=== PATIENT | male | born 1930 | race African-American/Black ===

== ENCOUNTER 2017-07-16 20:18 | Inpatient (IN) | payer MEDICARE, MEDICAID ==
[2017-07-16 21:13] LABS: Bilirubin Large (Negative); Blood, Urine Large (Negative); Clarity TURBID (Clear); Glucose, Urine (Dipstick) 100 mg/dL (Negative); Leukocyte Moderate (Negative); Nitrite Positive (Negative); Protein, Urine (Dipstick) 300 mg/dL (Neg-Trace); Specific Gravity, Urine 1.023 (1.002-1.036)
[2017-07-16 21:15] LABS: WBC/HPF 21-50 HPF (0-3)
[2017-07-16 21:16] LABS: Pathc Cast-AUWi Flag 31.11 (0-2.49); Yeast-AUWi Flag 71.8 (0-25.0)
[2017-07-16 21:23] LABS: RBC/HPF 21-50 HPF (0-3)
[2017-07-16 21:24] LABS: Renal Epithelial 0-3 HPF (0-3); Squamous Epithelial 0-3 HPF (0-3)
[2017-07-16 21:25] LABS: Bacteria/HPF 1+ HPF (None Seen); Crystals/HPF 1+ CA OXALATE HPF (Negative)
--- NOTE | 2017-07-16 21:27 | CT ---
CT BRAIN WITHOUT CONTRAST: 07/16/17 HISTORY: Altered mental status. COMPARISON: CT brain 2013. FINDINGS: No acute territorial infarct or hemorrhage. No midline shift or mass effect. Mild joint atrophy. Exam is limited due to extensive motion artifact. Extensive subcortical and deep white matter microangiopathic changes. IMPRESSION: No acute intracranial abnormality. POS: ENMANUEL
[2017-07-16] MEDS ORDERED: cefTRIAXone\\ROCEPHIN 2 GM VIAL ONE (22:12)
[2017-07-16] MEDS ORDERED: Acetaminophen 325 MG TAB PO PRN (23:28)
[2017-07-16] MEDS ORDERED: Ondansetron HCl/PF 4 MG/2 ML Vial IVP PRN (23:28)
[2017-07-16] MEDS ORDERED: Ondansetron ODT 4 MG TAB PO PRN (23:28)
[2017-07-16] MEDS ORDERED: Acetaminophen 650 MG Suppository PR PRN (23:28)
[2017-07-16] MEDS ORDERED: CCU Electrolyte Replacement 1 EACH FS ONE (23:30)
[2017-07-16] MEDS ORDERED: Sodium Chloride 0.9% 1,000 ML IV SCH (23:30)
[2017-07-16] MEDS ORDERED: Norepinephrine 8 MG/0.9% NS 250 ML IVPB SCH (23:30)
[2017-07-17] MEDS ORDERED: Potassium Phosphate 9 MMOL in Sodium Chloride 0.9% 100 ML IVPB PRN (00:21)
[2017-07-17] MEDS ORDERED: CCU ELECTROLYTE REPLACEMENT PROTOCOL FS PRN (00:21)
[2017-07-17] MEDS ORDERED: Potassium Chloride 20 MEQ TAB PO PRN (00:21)
[2017-07-17] MEDS ORDERED: Potassium Phosphate 12 MMOL in Sodium Chloride 0.9% 250 ML 250 ML IV PRN (00:21)
[2017-07-17] MEDS ORDERED: Potassium Chloride 40 MEQ in Premix Bag 1 BAG IVPB PRN (00:21)
[2017-07-17] MEDS ORDERED: Magnesium Oxide 400 MG TAB PO PRN ×2 (00:21)
[2017-07-17] MEDS ORDERED: Potassium Phosphate 15 MMOL in Sodium Chloride 0.9% 250 ML 250 ML IV PRN (00:21)
[2017-07-17] MEDS ORDERED: Magnesium 2 GM/NS 0.9% 100 ML 2 GM in Premix Bag 1 BAG IVPB PRN (00:21)
[2017-07-17] MEDS ORDERED: Potassium Chloride 40 MEQ in Sodium Chloride 0.9% 250 ML 250 ML IVPB PRN (00:21)
--- NOTE | 2017-07-17 00:25 | PDOC.FPRHP ---
- History of Present Illness Chief Complaint: hypotension, ams, vomiting, diarrhea History of Present Illness: PCP: [facility] Code Status: OOH DNR; however, unable to contact POA to confirm they wish to continue DNR status while inpatient. Pt will be admitted full code and will try again to contact family in the AM 87 yo M w/ PMH of dementia, cerebrovascular insufficiency, htn, chronic kidney disease and GERD presented to outside ED after NH found pt to be hypotensive. History was obtained through chart review of past notes, er records and speaking with group home. NH reports pt had been vomiting approx 4-5 times today and had some noted diarrhea as well. He was found to be hypotensive and not at his baseline mental status at which point he was sent to [place] er for further evaluation. In the ER pt was found to be hypotensive down to 50s/40s with tachycardia and tachypnia. He was afebrile. He was volume resuscitated, started on levophed for hypotension, given vancomycin and subsequently shipped to [facility] for further evaluation. On arrival to the ED at this hospital pt was found to be persistently hypotensive and had a GCS of 9. He had a frazier and left subclavian central line in place. No other history was able to be provided. As pt was responsive only to verbal stimuli and not verbal. ED Course: Levophed, vancomycin, 4L NS, zofran - Allergies/Adverse Reactions Allergies Allergy/AdvReac Type Severity Reaction Status Date / Time No Known Allergies Allergy Verified 07/16/17 23:31 - Home Medications Medication Instructions Recorded Confirmed Type Atorvastatin Calcium [Lipitor] 20 mg PO DAILY 08/16/13 07/16/17 History Docusate [Colace] 100 mg PO DAILY 08/16/13 07/16/17 History Bisacodyl [Dulcolax] 10 mg WV DAILYPRN PRN #0 supp 12/08/13 07/16/17 Rx Lisinopril [Zestril] 10 mg PO DAILY #0 tab 12/08/13 07/16/17 Rx Amlodipine [Norvasc] 10 mg PO DAILY 07/16/17 07/16/17 History Ascorbic Acid [Vitamin C] 500 mg PO DAILY 07/16/17 07/16/17 History Aspirin 325 mg PO DAILY 07/16/17 07/16/17 History Divalproex Sodium [Depakote 125 mg PO DAILY 07/16/17 07/16/17 History Sprinkle] Ipratropium/Albuterol Sulfate 3 ml NEB QID PRN 07/16/17 07/16/17 History [Duoneb] Pantoprazole Sodium [Protonix] 40 mg PO DAILY 07/16/17 07/16/17 History Rivastigmine Tartrate 1.5 mg PO DAILY 07/16/17 07/16/17 History [Rivastigmine] risperiDONE [RisperDAL] 1 mg PO HS 07/16/17 07/16/17 History - History PMHx: HTN, CKD, GERD, HLD PSHx: Unknown FHx: NA Social: Unknown - Review of Systems ROS unobtainable: due to mental status - Vital signs BP: 52/40 HR: 117 RR: 41 Tmax: 98.6 Pox: 100% on 2LNC Wt: 91Kg - Physical Exam Constitutional: other (Lethargic, arousable to verbal stimuli, altered mental status, responds to verbal commands, non-verbal) HEENT: normocephalic and atraumatic, PERRLA, EOMI, conjunctiva clear, no scleral icterus, TM's clear and intact, grossly normal hearing Neck: supple, trachea midline, no LAD, no JVD, no thyromegaly Heart: normal S1/S2, no murmurs/rubs/gallops, pulses present, no edema, other ( tachycardic, regular rhythm) Lungs: CTAB, no respiratory distress, good air movement, no wheezing, no retractions Abdomen: bowel sounds present (sluggish), no masses/distention, other (guarding and localizing to LLQ, tender to palpation) Musculoskeletal: normal structure, ROM grossly normal Neurological: other (no localizing deficits, pt moving all extremities) Skin: no rash/lesions, capillary refill <2 seconds, other Heme/Lymphatic: no unusual bruising or bleeding, no petechia, no LAD Psychiatric: other (attempts to follow commands, lethargic) FMR H&P: Results - Labs Result Diagrams: 07/17/17 02:00 07/17/17 02:00 Lab results: Lactic Acid 4.5 mmol/L (0.5-2.2) H* 07/16/17 22:10 Urine Ketones 15 mg/dL (Negative) H 07/16/17 21:04 Urine Blood Large (Negative) H 07/16/17 21:04 Urine Nitrite Positive (Negative) H 07/16/17 21:04 Ur Leukocyte Esterase Moderate (Negative) H 07/16/17 21:04 Urine RBC 21-50 HPF (0-3) H 07/16/17 21:04 Urine WBC 21-50 HPF (0-3) H 07/16/17 21:04 Ur Squamous Epith Cells 0-3 HPF (0-3) 07/16/17 21:04 Urine Bacteria 1+ HPF (None Seen) H 07/16/17 21:04 - EKG Interpretation EKG: Sinus tach, LAD - Radiology Interpretation CT scan - head Status: report reviewed by me Additional comment: No acute intracranial process Chest x-ray Status: report reviewed by me (NAD, Left subclavian central line placed, rt deviation of trachea 2/2 possible mediastinal mass) FMR H&P: A/P - Problem List (1) Septic shock Current Visit: Yes Status: Acute Code(s): A41.9 - SEPSIS, UNSPECIFIED ORGANISM; R65.21 - SEVERE SEPSIS WITH SEPTIC SHOCK (2) UTI (urinary tract infection) Current Visit: Yes Status: Acute (3) Hematochezia Current Visit: Yes Status: Acute Code(s): K92.1 - MELENA (4) Abdominal pain Current Visit: Yes Status: Acute Code(s): R10.9 - UNSPECIFIED ABDOMINAL PAIN (5) Elevated troponin Current Visit: Yes Status: Acute Code(s): R74.8 - ABNORMAL LEVELS OF OTHER SERUM ENZYMES (6) Pvonl-dz-uusexcp kidney injury Current Visit: Yes Status: Acute Code(s): N17.9 - ACUTE KIDNEY FAILURE, UNSPECIFIED; N18.9 - CHRONIC KIDNEY DISEASE, UNSPECIFIED (7) Hypernatremia Current Visit: Yes Status: Acute Code(s): E87.0 - HYPEROSMOLALITY AND HYPERNATREMIA (8) HTN (hypertension) Current Visit: Yes Status: Acute Code(s): I10 - ESSENTIAL (PRIMARY) HYPERTENSION (9) GERD (gastroesophageal reflux disease) Current Visit: Yes Status: Acute Code(s): K21.9 - GASTRO-ESOPHAGEAL REFLUX DISEASE WITHOUT ESOPHAGITIS - Plan 1) Septic shock: likely 2/2 urosepsis vs hypovolemic shock -pt found to be as low as 52/40 in outside ED, given 4LNS and started on levophed -admit to ICU -levophed gtt titrate for MAP >65 -will cover broadly with vanc zosyn for now. Outside ED shannan blood cultures, pending results. - UA + nitrites and leuks with 1+ bacteria, culture pending. Likely E. Coli vs other Enterobacteriaceae family -pt does localize to LLQ abdominal pain and is having episodes of hematochezia and vomiting, will order KUB to r/o free air in abd and abnormal bowel gas pattern -consider am ct abd with contrast pending improvement of renal function and volume status -trend cbc, recheck am cbc/cmp and trend cardiac enzymes 2)UTI: See #1, broad spectrum abx. Blood and urine cultures pending 3) Hematochezia: -with associated abd pain and diarrhea/nausea -infectious vs hypoperfusion -Kub to check for free air/ abnormal bowel gas pattern -consider am ct with contrast once renal function improves 4) Abd pain: see #3 5)Elevated troponin: -likely 2/2 demand ischemia from hypoperfusion/hypotension -maintain MAP >65 and titrate levophed gtt accordingly -IVF @ 175mls/hr -will trend 6) AonCKD: -repeat am cmp, IVF @ 175 -has shown improvement from original labs with IVF resuscitation -trend 7) Lactic acidosis w/ anion gap met acidosis: -2/2 #1, see#1-4 -has trended down -recheck q4hr -NS @ 175mls/hr 8) Hypernatremia: 2/2 volume depletion -IVF hydration with NS @ 175 mls/hr -trend 9) HTN: Curerently hypotensive: hold bp mends 10) GERD: IV protonix while in ICU, home meds once pt stabilizes 11) PPX: Lovenox and protonix for dvt and GI ppx respectively 12) Code status: Pt will be admitted as a full code. He has an OOH dnr which is not applicable to the hospitalization and numerous attempts were made to contact POA. Unfortunately, unable to reach . He will remain full code for the time being and we will re-attempt contacting family in the AM to confirm or change current code status. He has baseline dementia and unable to make medical decisions for self 2/2 current condition. 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 Per ED record and NH staff, pt vomited multiple times today along with a couple episodes of diarrhea. He appeared altered and hard to arouse. BPs repeatedly low at 60s-70s systolic so sent to ED due to this. No fevers reported. In outside ED, pt found with elevated lactate and only mild improvement in BP. Central line placed and levophed started. No urine output. Garrison unstable for imaging so transferred to [facility]. Brain CT neg for acute process. Still requiring pressors but starting to wake up in ED. Admitted to CCU. - Pertinent findings Gen: opens eyes to voice, currently nonverbal, NAD HEENT: PERRL, EOMI, dry MM CV: sinus tachycardia, regular rhythm, no m/r/g Lungs: CTAB, no rales/rhonchi, no increased WOB Abd: soft, difficult to assess tenderness due to mentation although no guarding , potential TTP in LLQ, ND, BS+ Ext: no edema Neuro: not following commands; no obvious focal deficits Psych: sleepy but arousable Skin: cap refill <2 sec - Plan Date/Time: 07/17/17 0025 1. Septic shock likely 2/2 UTI and gastroenteritis. Tachycardic, increased RR, and 23% bands on repeat CBC. Pt severely hypotensive with 30ml/kg bolus giving only mild improvement. Central line placed and started on pressors. More fluids with more improvement although not weanable yet. Lactate 5.6. Broad spectrum abx and continue IV fluids. UA reflects likely UTI. Brain CT neg. Pending BCx/ UCx. Hypovolemia worsened by vomiting and diarrhea. Admit to CCU for pressor support with guarded prognosis. 2. UTI. See above. UCx pending. Treat broad spectrum abx currently. May have secondary gastroenteritis as well or just 3. Hematochezia. Infectious vs hypoperfusion. Pt had a few episodes of diarrhea prior to admission with no mention in records of blood. Started having loose stools with blood present confirmed on FOBT soon after got to floor. BPs low for some time today due to sepsis and requiring pressors. Continue following lactate. Will plan for CT abd in AM pending expected renal improvement. KUB now to rule out free air and evaluate for signs of ischemia. Stool studies pending for infectious etiology. Consider GI consult if bleeding continues. H&H stable; repeat in AM. 4. Gastroenteritis, presumed infectious. May be viral that led to dehydration with hypoperfusion leading to hematochezia, but could also be bacterial etiology. Pending stool studies. See above. 5. EDWARDO on CKD3. Continue IV fluids and repeat in AM. Already showing mild improvement. Urine output starting to improve. 6. Lactic acidosis. Continue with IV fluids and trending lactate. Bicarb 19. 7. Hypernatremia. Likely due to hypovolemia. Trend and replace fluids. 8. Hx prostate cancer. Unsure if treated or how advanced. 9. Severe dementia. 2/2 progressive amyloid angiopathy and recurrent CVAs. Lives in long-term NH. Family not available by phone after multiple attempts. Pt has [id number] DNR but unable to contact anyone concerning this admission. Pt not able to answer questions. Full code at this point. Will speak with Dr. Ott tomorrow and again attempt family contact. Prior admission in mentioned going to NH with hospice although unclear if this has changed. PT/ OT evaluation when more awake. I, Leo Hector, have evaluated this patient and agree with findings/plan as outlined by event marketing intern resident. Pertinent changes/additions are listed here. Attending Addendum - Attending Addendum Date/Time: 07/17/17 0702 I personally evaluated the patient and discussed the management with Dr. Koo on 07/16/17 I agree with the History, Examination, Assessment and Plan documented above with any addition or exceptions noted below- Briefly this is an 87 yo male with h/o dementia, GERD, CVA and CKD sent to [place] ER from [place] due to several episodes of vomiting/diarrhea and altered MS from baseline. IN ER patient noted to be hypotensive. Given 2 L IVF and transferred; additional fluid given in ER here and patent started on pressors with improvement of BP and mentation. PMH/ PSH/Meds/SH/ALL reviewed and agree with resident's documentation. Afebrile P111 BP 88/58 RR 15 99%. Exam repeated by me and agree with resident's findings. Labs- WBC=8.8 Hgb=-14.2 Hct=46.4 Dqq=942 Sm=099 CO2=19 Cr=1.85 Ca=13.0 CT brain- no acute findings. U/A 4+ prot, large blood, (+) nitrite, moderate leuk esterase, 21-50 RBC, 21-50 WBC, 1+ bact; lactate 5.2 then 4.5. CXR-no acute findings. A/P: 1) Sepsis secondary to UTI- continue antibiotics, cultures pending; continue IVF hydration and monitor urine output closely. 2) Dementia- will discuss with PCP and NH patient's baseline status, 3) Hypotension - improved; wean pressors as tolerated.
[2017-07-17 00:45] LABS: ALT (SGPT) 14 U/L (8-55); AST (SGOT) 22 U/L (5-34); Albumin 3.5 g/dL (3.4-4.8); Alkaline Phosphatase 183 U/L (40-150); Anion Gap 13 mmol/L (10-20); BUN (Urea Nitrogen) 23 mg/dL (8.4-25.7); Bilirubin, Total 0.9 mg/dL (0.2-1.2); Calc. Creatinine Clearance 43 mL/min (70-130); Calcium 10.4 mg/dL (7.8-10.44); Carbon Dioxide 19 mmol/L (23-31); Chloride 118 mmol/L (98-107); Estimated GFR-MDRD 49; Globulin 1.9 g/dL (2.4-3.5); Glucose 137 mg/dL (83-110); Potassium 3.7 mmol/L (3.5-5.1); Protein, Total 5.4 g/dL (5.8-8.1); Sodium 146 mmol/L (136-145)
[2017-07-17 00:49] LABS: CKMB 4.5 ng/mL (0-6.6); Troponin I 0.047 ng/mL (< 0.028)
[2017-07-17] MEDS: Piperacillin/Tazobactam 3.375 GM in Sodium Chloride 0.9% 100 ML IVPB SCH ×4 (02:36→22:11)
[2017-07-17] MEDS ORDERED: Vancomycin HCl 1 GM in Premix Bag 1 BAG IVPB SCH (03:00)
[2017-07-17 03:14] LABS: Lactic Acid 3.1 mmol/L (0.5-2.2)
[2017-07-17 03:30] LABS: Band 23 % (5-11); Hemoglobin 13.2 g/dL (14.0-18.0); Lymphocytes 7 % (21-51); MDiff Complete? YES; Macrocytosis SLIGHT = 6-15 cells (100X) (0-5/hpf); Mean Corpuscular HGB CONC 32.9 g/dL (32.0-36.0); Mean Corpuscular Hemoglobin 33.5 pg (27.0-31.0); Mean Platelet Volume 9.4 fL (7.4-10.4); Metamyelocyte 2 % (0-0); Monocytes 2 % (0-10); Neutrophil 61 % (42-75); PLT Morphology Comment Appears Decreased; Platelet Count 109 thou/uL (130-400); RBC Distribution Width 13.7 % (11.5-14.5); Reactive Lymphocytes 5 % (0-10); Red Blood Cell (RBC) Count 3.95 mill/uL (4.70-6.10); White Blood Cell (WBC) Count 6.3 thou/uL (4.8-10.8)
[2017-07-17 03:33] LABS: ALT (SGPT) 13 U/L (8-55); AST (SGOT) 25 U/L (5-34); Albumin 3.4 g/dL (3.4-4.8); Alkaline Phosphatase 172 U/L (40-150); Anion Gap 12 mmol/L (10-20); BUN (Urea Nitrogen) 23 mg/dL (8.4-25.7); Bilirubin, Total 0.9 mg/dL (0.2-1.2); Calc. Creatinine Clearance 44 mL/min (70-130); Calcium 10.4 mg/dL (7.8-10.44); Carbon Dioxide 19 mmol/L (23-31); Chloride 119 mmol/L (98-107); Estimated GFR-MDRD 50; Glucose 136 mg/dL (83-110); Protein, Total 5.4 g/dL (5.8-8.1); Sodium 146 mmol/L (136-145)
[2017-07-17 04:55] LABS: CKMB 5.3 ng/mL (0-6.6); Troponin I 0.042 ng/mL (< 0.028)
[2017-07-17] MEDS: Lactated Ringer's 1,000 ML IV SCH ×4 (06:32→23:25)
--- NOTE | 2017-07-17 08:48 | PDOC.FM ---
- Subjective Subjective: CC: non-verbal HPI: Patient remains nonverbal but opens eyes to commands. Attempting to contact family at this time but still unable to reach. Will attempt to obtain copy of OOH DNR from [place]. Nursing states he was slowly weaned of pressors overnight. - Objective MAR Reviewed: Yes Vital Signs & Weight: Vital Signs (12 hours) Temp Pulse Resp Pulse Ox 07/17/17 08:00 98.9 F 86 25 H 100 07/17/17 07:00 98.9 F 07/17/17 06:00 98 F 07/17/17 04:00 100 07/17/17 03:00 97.6 F 07/17/17 00:00 98.1 F 99 07/16/17 23:31 98.1 F 90 20 99 Most Recent Monitor Data Heart Rate from ECG 87 NIBP 88/51 NIBP BP-Mean 68 Respiration from ECG 23 SpO2 100 I&O: 07/16/17 07/17/17 07/18/17 06:59 06:59 06:59 Intake Total 5307 6 Output Total 380 105 Balance 4927 -99 Result Diagrams: 07/17/17 02:00 07/17/17 02:00 <Jas Uribe - Last Filed: 07/17/17 08:47> - Objective Vital Signs & Weight: Vital Signs (12 hours) Temp Pulse Resp Pulse Ox 07/17/17 11:00 98.5 F 07/17/17 08:00 98.9 F 86 25 H 100 07/17/17 07:00 98.9 F 07/17/17 06:00 98 F 07/17/17 04:00 100 Most Recent Monitor Data Heart Rate from ECG 100 NIBP 97/57 NIBP BP-Mean 68 Respiration from ECG 23 SpO2 100 I&O: 07/16/17 07/17/17 07/18/17 06:59 06:59 06:59 Intake Total 5307 996 Output Total 380 420 Balance 4927 576 Result Diagrams: 07/17/17 02:00 07/17/17 02:00 <Omid Mathur - Last Filed: 07/17/17 16:01> Phys Exam - Physical Examination Constitutional: NAD HEENT: moist MMs, sclera anicteric Neck: no nodes, no JVD Respiratory: no wheezing, clear to auscultation bilateral Cardiovascular: RRR, no significant murmur Gastrointestinal: soft, no distention, positive bowel sounds patient grimices with abdominal palpation diffusely. Musculoskeletal: no edema cannont assess Skin: no rash, cap refill <2 seconds <Jas Uribe - Last Filed: 07/17/17 08:47> Dx/Plan (1) Septic shock Code(s): A41.9 - SEPSIS, UNSPECIFIED ORGANISM; R65.21 - SEVERE SEPSIS WITH SEPTIC SHOCK Status: Acute Plan: Slowly weaning off pressors. continue abx and fluids. (2) UTI (urinary tract infection) Status: Acute QualifierTitle: Urinary tract infection type: site unspecified Hematuria presence: with hematuria Qualified Code(s): N39.0 - Urinary tract infection, site not specified; R31.9 - Hematuria, unspecified; R31.9 - Hematuria, unspecified Plan: Culture pending. Vanc/Zosyn day 2 (3) Abdominal pain Code(s): R10.9 - UNSPECIFIED ABDOMINAL PAIN Status: Acute QualifierTitle: Abdominal location: generalized Qualified Code(s): R10.84 - Generalized abdominal pain Plan: cannot localize due to AMS/dementia - since renal function improving, will consider CT abdomen and pelvis with contrast. Would like to see kidneys improve more before subjecting to contrast - stool studies pending. FOBT positive. (4) [id number] kidney injury Code(s): N17.9 - ACUTE KIDNEY FAILURE, UNSPECIFIED; N18.9 - CHRONIC KIDNEY DISEASE, UNSPECIFIED Status: Acute QualifierTitle: Acute renal failure type: unspecified Chronic kidney disease stage: unspecified stage Qualified Code(s): N17.9 - Acute kidney failure, unspecified; N18.9 - Chronic kidney disease, unspecified; N18.9 - Chronic kidney disease, unspecified Plan: improving. baseline Cr 0.9. - continue fluids, attempt to wean pressors. (5) Dementia Code(s): F03.90 - UNSPECIFIED DEMENTIA WITHOUT BEHAVIORAL DISTURBANCE Status: Acute QualifierTitle: Dementia type: unspecified type Dementia behavioral disturbance: without behavioral disturbance Qualified Code(s): F03.90 - Unspecified dementia without behavioral disturbance Plan: Will attempt to contact family and PCP regarding correction care goals. Patient has record of OOH DNR. will obtain copy and adjust code status accordingly. <Jas Uribe - Last Filed: 07/17/17 08:47> Attending Addendum - Attending Addendum Date/Time: 07/17/17 9568 I personally evaluated the patient and discussed the management with Dr. Uribe. I agree with the History, Examination, Assessment and Plan documented above with any addition or exceptions noted below. Pt. arousable, confused. Maintaining MAP >65 off pressors. Lungs CTA. Septic Shock d/t UTI in pt with baseline vascular dementia, improved with IVF and abx' s. Confirm code status with family. Likely can be moved out of CCU if continues to return to baseline. 35 minutes spent in review of history, examination, labs and CCU progress and formulating treatment plan.. <Omid Mathur - Last Filed: 07/17/17 16:01>
[2017-07-17] MEDS ORDERED: Pantoprazole 40 MG VIAL IVP SCH (09:00)
[2017-07-17] MEDS ORDERED: Prevnar 13-Val Conj/PF 0.5 ML SYRINGE IM ONE (09:00)
[2017-07-17] MEDS ORDERED: Famotidine/PF 20 mg/2ml Vial SLOW IVP SCH (09:00)
--- NOTE | 2017-07-17 09:34 | RAD ---
KUB TWO VIEWS: Indication: Abdominal pain, hypotension, altered mental status. FINDINGS: The bowel gas pattern is nonspecific but without evidence of obstruction. There is a temperature prob e within the region of the bladder. There are numerous surgical clips within the prostate which may r eflect sequellae of a prostatectomy. There is severe degenerative change involving the right hip and lower lumbar spine. There is diffuse osteopenia. No suspicious calcification is evident. There is a p hlebolith within the right hemipelvis. IMPRESSION: No acute abnormality. POS: ENMANUEL
[2017-07-17] MEDS: Docusate 100 MG CAP PO SCH ×2 (12:47→22:12)
[2017-07-17] MEDS: Enoxaparin Sodium 40 MG/0.4 ML SYRINGE SC SCH (12:47)
[2017-07-17] MEDS: Vancomycin HCl 1 GM in Premix Bag 1 BAG IVPB SCH (16:51)
--- NOTE | 2017-07-18 00:07 | CON ---
DATE OF CONSULTATION: 07/17/2017 HISTORY OF PRESENT ILLNESS: Nirav Davis is an 87-year-old male living in fulltime care environment with dementia. He presented to the emergency room with hypotension. He was placed on pressors. He is off pressors now. He has an out of hospital DNR. I talked to Dr. Ott who has cared for him for many years and he at the [facility] for access to the Critical Care Unit. PAST MEDICAL HISTORY: Remarkable for chronic kidney disease, hypertension, dementia. SOCIAL HISTORY: Presumed, he is a nonsmoker, nondrinker, nondrug user since he lives in a [facility]. MEDICATIONS: Prior to admission, he was on vitamin C, aspirin, Depakote, nebulizer treatments, Protonix, rivastigmine, and Risperdal. FAMILY HISTORY: Negative for lung disease in early age. REVIEW OF SYSTEMS: Not obtainable. PHYSICAL EXAMINATION: GENERAL: Patient lives in [facility], I presume he does not smoke/drink or use drugs. VITAL SIGNS: Nonverbal, blood pressure 101/67, heart rate 72, respiratory rate is 27. He is 51 and 127 mL positive on intake and output overnight. HEENT: His pupils reacts. He is nonverbal. NECK: Supple. LUNGS: Clear. HEART: Regular rhythm, no S3. ABDOMEN: Soft and nontender. EXTREMITIES: No clubbing, cyanosis, or edema. LABORATORY DATA: White count 6.3, hemoglobin 13.2, and platelets 109. Sodium 146, potassium 4, chloride 119, bicarbonate 19, BUN 23, and creatinine 1.59. Urinalysis, there are red cells and white cells. I do not find any blood cultures. Urine culture was negative at 12 hours. IMPRESSION: 1. Severe intravascular volume depletion secondary to dementia. 2. Out of hospital DNR, he has been adequately hydrated. He is off pressors. He is stable to move out to the floor and should be transferred back to the [facility] in the morning if he remains stable. This is a 70-minute consult greater than 50% of the time was spent coordinating care. DAVY
[2017-07-18] MEDS: Piperacillin/Tazobactam 3.375 GM in Sodium Chloride 0.9% 100 ML IVPB SCH ×4 (02:55→20:54)
[2017-07-18 06:36] LABS: #Monocytes 0.4 thou/uL (0.11-0.59); #Neutrophils 5.3 thou/uL (1.40-6.50); %Basophils 0.1 % (0.0-1.0); %Eosinophils 0.3 % (0.0-10.0); %Monocytes 6.3 % (0.0-10.0); %Neutrophils 78.4 % (42.0-75.0); Hemoglobin 11.6 g/dL (14.0-18.0); Mean Corpuscular HGB CONC 32.7 g/dL (32.0-36.0); Mean Corpuscular Hemoglobin 32.9 pg (27.0-31.0); Mean Platelet Volume 8.8 fL (7.4-10.4); Platelet Count 95 thou/uL (130-400); RBC Distribution Width 13.7 % (11.5-14.5); Red Blood Cell (RBC) Count 3.54 mill/uL (4.70-6.10); White Blood Cell (WBC) Count 6.7 thou/uL (4.8-10.8)
[2017-07-18 06:41] LABS: ALT (SGPT) 17 U/L (8-55); AST (SGOT) 42 U/L (5-34); Albumin 2.9 g/dL (3.4-4.8); Alkaline Phosphatase 115 U/L (40-150); Anion Gap 7 mmol/L (10-20); BUN (Urea Nitrogen) 24 mg/dL (8.4-25.7); Bilirubin, Total 1.5 mg/dL (0.2-1.2); Calc. Creatinine Clearance 41 mL/min (70-130); Calcium 10.6 mg/dL (7.8-10.44); Carbon Dioxide 22 mmol/L (23-31); Chloride 122 mmol/L (98-107); Estimated GFR-MDRD 47; Globulin 1.9 g/dL (2.4-3.5); Glucose 117 mg/dL (83-110); Protein, Total 4.8 g/dL (5.8-8.1); Sodium 147 mmol/L (136-145)
--- NOTE | 2017-07-18 07:01 | PDOC.FM ---
- Subjective Subjective: CC: Non verbal HPI: Nursing states he has only been opening his eyes to verbal stimuli. Not following commands. States she called speech therapy to evaluate. Patient would open his eyes and look at me but did not follow commands. - Objective MAR Reviewed: Yes Vital Signs & Weight: Vital Signs (12 hours) Temp Pulse Resp BP Pulse Ox 07/18/17 04:00 98.3 F 93 18 133/83 99 07/18/17 02:11 95 07/18/17 00:00 98.3 F 100 18 150/77 H 100 07/17/17 20:00 99.4 F 100 16 143/80 H 100 Most Recent Monitor Data Heart Rate from ECG 100 NIBP 97/57 NIBP BP-Mean 68 Respiration from ECG 23 SpO2 100 I&O: 07/17/17 07/18/17 07/19/17 06:59 06:59 06:59 Intake Total 5307 1646 Output Total 380 770 Balance 4927 876 Result Diagrams: 07/18/17 06:20 07/18/17 06:20 <Jas Uribe W - Last Filed: 07/18/17 09:32> - Objective Vital Signs & Weight: Vital Signs (12 hours) Temp Pulse Resp BP BP Pulse Ox 07/18/17 08:26 93 96/64 07/18/17 07:43 98.6 F 93 16 96/64 99 07/18/17 04:00 98.3 F 93 18 133/83 99 07/18/17 02:11 95 07/18/17 00:00 98.3 F 100 18 150/77 H 100 Weight Admit Weight 91 kg Weight 91 kg Most Recent Monitor Data Heart Rate from ECG 100 NIBP 97/57 NIBP BP-Mean 68 Respiration from ECG 23 SpO2 100 I&O: 07/17/17 07/18/17 07/19/17 06:59 06:59 06:59 Intake Total 5307 1646 Output Total 380 770 Balance 4927 876 Result Diagrams: 07/18/17 06:20 07/18/17 06:20 <Omid Mathur - Last Filed: 07/18/17 10:49> Phys Exam - Physical Examination Constitutional: NAD HEENT: moist MMs, sclera anicteric Respiratory: no wheezing, clear to auscultation bilateral Cardiovascular: RRR, no significant murmur Gastrointestinal: soft, no distention, positive bowel sounds cannot assess tenderness. Patient does not grimice on abdominal exam. Musculoskeletal: no edema, pulses present Neurological: moves all 4 limbs does not follow commands. Deviation from normal: A&Ox0 <Jas Uribe - Last Filed: 07/18/17 09:32> Dx/Plan (1) Septic shock Code(s): A41.9 - SEPSIS, UNSPECIFIED ORGANISM; R65.21 - SEVERE SEPSIS WITH SEPTIC SHOCK Status: Acute Plan: Vitals stable. creatinine stabilized but has not returned to baseline. - Switch LR to 1/2NS and decrease rate to 100 mL/hr - repeat BMP tomorrow morning - continue abx. (2) UTI (urinary tract infection) Status: Acute QualifierTitle: Urinary tract infection type: site unspecified Hematuria presence: with hematuria Qualified Code(s): N39.0 - Urinary tract infection, site not specified; R31.9 - Hematuria, unspecified; R31.9 - Hematuria, unspecified Plan: Culture pending. Vanc/Zosyn day 3 - upon review of ER records, culture likely to be negative as it was collected after the first dose of abx were given. - continue abx. if he continues to improve, will consider switching to oral regimen. (3) Abdominal pain Code(s): R10.9 - UNSPECIFIED ABDOMINAL PAIN Status: Acute QualifierTitle: Abdominal location: generalized Qualified Code(s): R10.84 - Generalized abdominal pain Plan: cannot localize due to AMS/dementia - stool studies negative. has only had one loose bowel movement - exam improving. - monitor. (4) Vazsp-uf-esleydi kidney injury Code(s): N17.9 - ACUTE KIDNEY FAILURE, UNSPECIFIED; N18.9 - CHRONIC KIDNEY DISEASE, UNSPECIFIED Status: Acute QualifierTitle: Acute renal failure type: unspecified Chronic kidney disease stage: unspecified stage Qualified Code(s): N17.9 - Acute kidney failure, unspecified; N18.9 - Chronic kidney disease, unspecified; N18.9 - Chronic kidney disease, unspecified Plan: stabilized. baseline Cr 0.9. - continue fluids as dictated above (5) Dementia Code(s): F03.90 - UNSPECIFIED DEMENTIA WITHOUT BEHAVIORAL DISTURBANCE Status: Acute QualifierTitle: Dementia type: unspecified type Dementia behavioral disturbance: with behavioral disturbance Qualified Code(s): F03.91 - Unspecified dementia with behavioral disturbance Plan: Spoke with yesterday regarding end of life care goals. States she wants him DNR/DNI but is unsure about other life sustaining measures such as PEG tube placement and HD if needed. Informed her the team did not need an answer immediately as we would give the patient time to wake up from his illness. (6) HTN (hypertension) Code(s): I10 - ESSENTIAL (PRIMARY) HYPERTENSION Status: Acute QualifierTitle: Hypertension type: essential hypertension Qualified Code( s): I10 - Essential (primary) hypertension Plan: Restarted amlodipine, lipitor, and ASA. Held lisinopril due to EDWARDO. - can hold until he has been cleared by speech therapy. - PRNs made available. <Jas Uribe - Last Filed: 07/18/17 09:32> Attending Addendum - Attending Addendum Date/Time: 07/18/17 1043 I personally evaluated the patient and discussed the management with Dr. Uribe. I agree with the History, Examination, Assessment and Plan documented above with any addition or exceptions noted below. Fluids changed to 1/2 NS 2/2 hypernatremia. Cont antibiotics. Awaiting mental status to improve. CM working on placement planning- SNF vs. rehab. Bedside swallow study, when tolerant, can eat. <Omid Mathur - Last Filed: 07/18/17 10:49>
[2017-07-18] MEDS: Sodium Chloride 0.45% 1,000 ML IV SCH ×2 (08:25→18:22)
[2017-07-18] MEDS: Aspirin 325 MG TAB PO SCH (08:26)
[2017-07-18] MEDS: Amlodipine 10 MG TAB PO SCH (08:26)
[2017-07-18] MEDS: Ascorbic Acid 500 mg Chewable Tablet PO SCH (08:26)
[2017-07-18] MEDS: Atorvastatin Calcium 20 MG TAB PO SCH (08:26)
[2017-07-18] MEDS: Pantoprazole 40 MG GRANULES PACKET PO SCH (08:27)
[2017-07-18] MEDS: Divalproex Sodium 125 mg Sprinkle Capsule PO SCH (08:27)
[2017-07-18] MEDS: Docusate 100 MG CAP PO SCH ×2 (08:27→20:54)
[2017-07-18] MEDS: Rivastigmine 1.5 MG CAP PO SCH (08:27)
[2017-07-18] MEDS: Enoxaparin Sodium 40 MG/0.4 ML SYRINGE SC SCH (08:39)
[2017-07-18 09:25] VITALS: BMI 30.4
[2017-07-18] MEDS ORDERED: Labetalol HCl 100 MG/20 ML VIAL SLOW IVP PRN (09:38)
[2017-07-18] MEDS ORDERED: hydrALAZINE 20 MG/ML VIAL SLOW IVP PRN (09:38)
[2017-07-18] MEDS: Vancomycin HCl 1 GM in Premix Bag 1 BAG IVPB SCH (18:07)
[2017-07-18] MEDS: risperiDONE 1 MG TAB PO SCH (20:54)
[2017-07-19] MEDS: Sodium Chloride 0.45% 1,000 ML IV SCH ×2 (00:35→08:35)
[2017-07-19] MEDS: Lactated Ringer's 1,000 ML IV SCH (01:08)
[2017-07-19] MEDS: Piperacillin/Tazobactam 3.375 GM in Sodium Chloride 0.9% 100 ML IVPB SCH ×4 (02:55→22:07)
[2017-07-19 06:40] LABS: Anion Gap 6 mmol/L (10-20); BUN (Urea Nitrogen) 18 mg/dL (8.4-25.7); Calc. Creatinine Clearance 48 mL/min (70-130); Calcium 10.9 mg/dL (7.8-10.44); Carbon Dioxide 23 mmol/L (23-31); Chloride 120 mmol/L (98-107); Estimated GFR-MDRD 56; Glucose 96 mg/dL (83-110); Potassium 3.8 mmol/L (3.5-5.1); Sodium 145 mmol/L (136-145)
[2017-07-19 07:09] LABS: #Eosinphils 0.1 thou/uL (0.0-0.7); #Lymphocytes 1.2 thou/uL (1.20-3.40); #Monocytes 0.4 thou/uL (0.11-0.59); %Basophils 0.2 % (0.0-1.0); %Lymphocytes 15.5 % (21.0-51.0); %Monocytes 4.9 % (0.0-10.0); %Neutrophils 78.4 % (42.0-75.0); Hemoglobin 11.3 g/dL (14.0-18.0); Mean Corpuscular HGB CONC 34.1 g/dL (32.0-36.0); Mean Corpuscular Hemoglobin 34.3 pg (27.0-31.0); Mean Platelet Volume 8.8 fL (7.4-10.4); Platelet Count 90 thou/uL (130-400); RBC Distribution Width 13.7 % (11.5-14.5); Red Blood Cell (RBC) Count 3.29 mill/uL (4.70-6.10); White Blood Cell (WBC) Count 7.6 thou/uL (4.8-10.8)
--- NOTE | 2017-07-19 07:46 | PDOC.FM ---
- Subjective Subjective: CC: none offered HPI: patient much more alert and verbal this morning. Per report from Dr. Ott, appears to be near baseline. Spoke with nurse and said he could eat if cleared by speech. She said she would call speech therapy and have him evaluated. - Objective MAR Reviewed: Yes Vital Signs & Weight: Vital Signs (12 hours) Temp Pulse Resp BP Pulse Ox 07/19/17 07:07 98.5 F 98 16 141/90 H 96 07/19/17 03:48 98.6 F 89 16 134/78 99 07/18/17 20:04 99.2 F 103 H 18 132/91 H 94 L 07/18/17 20:00 99.2 F 103 H 18 95 Weight Admit Weight 91 kg Weight 91 kg Most Recent Monitor Data Heart Rate from ECG 100 NIBP 97/57 NIBP BP-Mean 68 Respiration from ECG 23 SpO2 100 I&O: 07/18/17 07/19/17 07/20/17 06:59 06:59 06:59 Intake Total 1646 2100 Output Total 770 1250 Balance 876 850 Result Diagrams: 07/19/17 06:11 07/19/17 06:11 Phys Exam - Physical Examination Constitutional: NAD HEENT: sclera anicteric lips mildly dry Respiratory: no wheezing, clear to auscultation bilateral Cardiovascular: RRR, no significant murmur Gastrointestinal: soft, non-tender, no distention, positive bowel sounds Musculoskeletal: no edema Neurological: non-focal, moves all 4 limbs Lymphatic: no nodes Deviation from normal: A&Ox0 Dx/Plan (1) Septic shock Code(s): A41.9 - SEPSIS, UNSPECIFIED ORGANISM; R65.21 - SEVERE SEPSIS WITH SEPTIC SHOCK Status: Resolved Plan: Vitals stable. creatinine stabilized but has not returned to baseline. - continue maintenance fluids. - repeat BMP tomorrow morning - continue abx. (2) UTI (urinary tract infection) Status: Acute Qualifiers: Urinary tract infection type: site unspecified Hematuria presence: with hematuria Qualified Code(s): N39.0 - Urinary tract infection, site not specified; R31.9 - Hematuria, unspecified; R31.9 - Hematuria, unspecified Plan: Culture negative. Vanc/Zosyn day 4 - upon review of ER records, culture likely to be negative as it was collected after the first dose of abx were given. - continue abx. switch to PO levaquin if he passes speech eval. (3) Abdominal pain Code(s): R10.9 - UNSPECIFIED ABDOMINAL PAIN Status: Acute Qualifiers: Abdominal location: generalized Qualified Code(s): R10.84 - Generalized abdominal pain Plan: cannot localize due to AMS/dementia - stool studies negative. has only had one loose bowel movement - exam improving. - monitor. (4) Sefab-kb-qjosgwk kidney injury Code(s): N17.9 - ACUTE KIDNEY FAILURE, UNSPECIFIED; N18.9 - CHRONIC KIDNEY DISEASE, UNSPECIFIED Status: Acute Qualifiers: Acute renal failure type: unspecified Chronic kidney disease stage: unspecified stage Qualified Code(s): N17.9 - Acute kidney failure, unspecified ; N18.9 - Chronic kidney disease, unspecified; N18.9 - Chronic kidney disease, unspecified Plan: improving to 1.44. baseline Cr 0.9. - continue fluids as dictated above (5) Dementia Code(s): F03.90 - UNSPECIFIED DEMENTIA WITHOUT BEHAVIORAL DISTURBANCE Status: Acute Qualifiers: Dementia type: unspecified type Dementia behavioral disturbance: with behavioral disturbance Qualified Code(s): F03.91 - Unspecified dementia with behavioral disturbance Plan: Spoke with yesterday regarding end of life care goals. States she wants him DNR/DNI but is unsure about other life sustaining measures such as PEG tube placement and HD if needed. Informed her the team did not need an answer immediately as we would give the patient time to wake up from his illness. - speech therapy to evaluate. - if he fails swallow study, will discuss with family PEG tube placement vs. comfort feeds. (6) HTN (hypertension) Code(s): I10 - ESSENTIAL (PRIMARY) HYPERTENSION Status: Acute Qualifiers: Hypertension type: essential hypertension Qualified Code(s): I10 - Essential (primary) hypertension Plan: Restarted amlodipine, lipitor, and ASA. Held lisinopril due to EDWARDO. - can hold until he has been cleared by speech therapy. - PRNs made available. (7) Hypernatremia Code(s): E87.0 - HYPEROSMOLALITY AND HYPERNATREMIA Status: Acute Plan: improved with 1/2 NS.
[2017-07-19] MEDS: Divalproex Sodium 125 mg Sprinkle Capsule PO SCH (08:21)
[2017-07-19] MEDS: Amlodipine 10 MG TAB PO SCH (08:21)
[2017-07-19] MEDS: Docusate 100 MG CAP PO SCH ×2 (08:21→22:07)
[2017-07-19] MEDS: Atorvastatin Calcium 20 MG TAB PO SCH (08:21)
[2017-07-19] MEDS: Ascorbic Acid 500 mg Chewable Tablet PO SCH (08:21)
[2017-07-19] MEDS: Aspirin 325 MG TAB PO SCH (08:21)
[2017-07-19] MEDS: Rivastigmine 1.5 MG CAP PO SCH (08:22)
[2017-07-19] MEDS: Pantoprazole 40 MG GRANULES PACKET PO SCH (08:22)
[2017-07-19] MEDS: Enoxaparin Sodium 40 MG/0.4 ML SYRINGE SC SCH (08:22)
[2017-07-19] MEDS: Dextrose 5 %-0.45 % NaCl 1,000 ML IV SCH (15:17)
--- NOTE | 2017-07-19 15:23 | EKG ---
Test Reason : Blood Pressure : / mmHG Vent. Rate : 101 BPM Atrial Rate : 101 BPM P-R Int : 148 ms QRS Dur : 098 ms QT Int : 360 ms P-R-T Axes : 039 -63 066 degrees QTc Int : 466 ms Sinus tachycardia Left axis deviation Abnormal ECG Confirmed by ARTI GOTTI, RODDY Bob ([id number]), metropolitan editor PAVEL LÓPEZ ([id number]) on 07/19/2017 3:23:20 PM Referred By: Confirmed By:RODDY CHI MD
[2017-07-19 16:30] LABS: Vancomycin, Trough 9.5 ug/mL
[2017-07-19] MEDS ORDERED: Vancomycin HCl 1.5 GM in Sodium Chloride 0.9% 250 ML 300 ML IVPB SCH (17:00)
[2017-07-19] MEDS: risperiDONE 1 MG TAB PO SCH (22:08)
[2017-07-20] MEDS: Dextrose 5 %-0.45 % NaCl 1,000 ML IV SCH ×2 (01:12→09:33)
[2017-07-20] MEDS: Piperacillin/Tazobactam 3.375 GM in Sodium Chloride 0.9% 100 ML IVPB SCH ×3 (02:10→13:34)
[2017-07-20 05:47] LABS: Anion Gap 6 mmol/L (10-20); BUN (Urea Nitrogen) 14 mg/dL (8.4-25.7); Calc. Creatinine Clearance 54 mL/min (70-130); Carbon Dioxide 25 mmol/L (23-31); Chloride 117 mmol/L (98-107); Estimated GFR-MDRD 64; Glucose 106 mg/dL (83-110); Potassium 3.4 mmol/L (3.5-5.1); Sodium 145 mmol/L (136-145)
--- NOTE | 2017-07-20 07:32 | PDOC.FM ---
- Subjective Subjective: CC: None offered HPI: Nursing states he was more responsive overnight. No acute events. No family at bedside. Will call today. - Objective MAR Reviewed: Yes Vital Signs & Weight: Vital Signs (12 hours) Temp Pulse Resp BP Pulse Ox 07/20/17 04:00 89 155/95 H 07/20/17 00:00 94 147/92 H 07/19/17 20:00 98.4 F 84 16 148/81 H 94 L Weight Admit Weight 91 kg Weight 91 kg Most Recent Monitor Data Heart Rate from ECG 100 NIBP 97/57 NIBP BP-Mean 68 Respiration from ECG 23 SpO2 100 I&O: 07/19/17 07/20/17 07/21/17 06:59 06:59 06:59 Intake Total 2100 600 Output Total 1250 950 Balance 850 -350 Result Diagrams: 07/19/17 06:11 07/20/17 05:00 Phys Exam - Physical Examination Constitutional: NAD HEENT: moist MMs, sclera anicteric Respiratory: no wheezing, clear to auscultation bilateral Cardiovascular: RRR, no significant murmur Gastrointestinal: soft, non-tender, no distention Musculoskeletal: no edema Neurological: non-focal, moves all 4 limbs Psychiatric: normal affect Deviation from normal: A&O to person. Follow most commands. Skin: no rash, cap refill <2 seconds Dx/Plan (1) Septic shock Code(s): A41.9 - SEPSIS, UNSPECIFIED ORGANISM; R65.21 - SEVERE SEPSIS WITH SEPTIC SHOCK Status: Resolved Plan: Vitals stable. creatinine stabilized but has not returned to baseline. - continue maintenance fluids. Now on D5 1/2NS at 100 mL/hr - daily BMP - continue abx. (2) UTI (urinary tract infection) Status: Acute Qualifiers: Urinary tract infection type: site unspecified Hematuria presence: with hematuria Qualified Code(s): N39.0 - Urinary tract infection, site not specified; R31.9 - Hematuria, unspecified; R31.9 - Hematuria, unspecified Plan: Culture negative. Vanc/Zosyn day 5 - upon review of ER records, culture likely to be negative as it was collected after the first dose of abx were given. - continue abx. switch to PO levaquin if he passes speech eval. - since he will have had 5 full days of Vanc and zosyn tomorrow, could consider d/c abx completely. (3) Xybto-tb-sukulpu kidney injury Code(s): N17.9 - ACUTE KIDNEY FAILURE, UNSPECIFIED; N18.9 - CHRONIC KIDNEY DISEASE, UNSPECIFIED Status: Acute Qualifiers: Acute renal failure type: unspecified Chronic kidney disease stage: unspecified stage Qualified Code(s): N17.9 - Acute kidney failure, unspecified ; N18.9 - Chronic kidney disease, unspecified; N18.9 - Chronic kidney disease, unspecified Plan: improving to 1.29. baseline Cr 0.9. - continue fluids (4) Dementia Code(s): F03.90 - UNSPECIFIED DEMENTIA WITHOUT BEHAVIORAL DISTURBANCE Status: Acute Qualifiers: Dementia type: unspecified type Dementia behavioral disturbance: with behavioral disturbance Qualified Code(s): F03.91 - Unspecified dementia with behavioral disturbance Plan: Spoke with on day of admission regarding end of life care goals. States she wants him DNR/DNI but is unsure about other life sustaining measures such as PEG tube placement and HD if needed. Informed her the team did not need an answer immediately as we would give the patient time to wake up from his illness. - Improving cognition. Now follows commands and is A&O x1 consistently. - speech therapy to reevaluate. - will discuss with regarding PEG tube vs comfort feeds. (5) HTN (hypertension) Code(s): I10 - ESSENTIAL (PRIMARY) HYPERTENSION Status: Acute Qualifiers: Hypertension type: essential hypertension Qualified Code(s): I10 - Essential (primary) hypertension Plan: Restarted amlodipine, lipitor, and ASA. Held lisinopril due to EDWARDO. - can hold until he has been cleared by speech therapy. - PRNs made available. (6) Hypernatremia Code(s): E87.0 - HYPEROSMOLALITY AND HYPERNATREMIA Status: Acute Plan: improved with D51/2 NS. (7) Abdominal pain Code(s): R10.9 - UNSPECIFIED ABDOMINAL PAIN Status: Resolved Qualifiers: Abdominal location: generalized Qualified Code(s): R10.84 - Generalized abdominal pain Plan: cannot localize due to AMS/dementia - stool studies negative. has only had one loose bowel movement - exam improving. - monitor. (8) Hyperkalemia Code(s): E87.5 - HYPERKALEMIA Status: Acute Plan: replace 10 meq IV.
[2017-07-20] MEDS: Ascorbic Acid 500 mg Chewable Tablet PO SCH (07:48)
[2017-07-20] MEDS: Amlodipine 10 MG TAB PO SCH (07:48)
[2017-07-20] MEDS: Rivastigmine 1.5 MG CAP PO SCH (07:49)
[2017-07-20] MEDS: Aspirin 325 MG TAB PO SCH (07:49)
[2017-07-20] MEDS: Divalproex Sodium 125 mg Sprinkle Capsule PO SCH (07:49)
[2017-07-20] MEDS: Docusate 100 MG CAP PO SCH (07:49)
[2017-07-20] MEDS: Pantoprazole 40 MG GRANULES PACKET PO SCH (07:49)
[2017-07-20] MEDS: Atorvastatin Calcium 20 MG TAB PO SCH (07:49)
[2017-07-20] MEDS: Enoxaparin Sodium 40 MG/0.4 ML SYRINGE SC SCH (07:50)
[2017-07-20] MEDS ORDERED: D5 1/2 NS w/20 mEq KCL 1,000 ML IV SCH (08:00)
--- NOTE | 2017-07-20 13:07 | ADD-PRG ---
ADDENDUM DATE OF SERVICE: 07/19/2017 Please see the note from Dr. Uribe, for which I concur. The patient was seen and evaluated, examine d and discussed with the residents by bedside. This is an 87-year-old severely demented gentleman, w alpa came in basically septic, hypotensive and is on vancomycin and Zosyn and really has been improving , sounds like maybe back to baseline. We are trying to figure out how good or how safest he is and liz abel will get bedside evaluation for that. He is DNR and definitely numerous medical problems as well a s severe dementia, but it sounds like we can probably get him back at least in the next couple days t o his group home setting as he has drastically improved. We will definitely switch him over to p.o . antibiotics today though and hopefully can turn the corner fairly quickly or at least get him back to baseline, although it does sound like he basically is almost there right now.
[2017-07-20 14:46] VITALS: BP 151/95; TEMP 98.2
--- NOTE | 2017-07-20 15:13 | ADD-PRG ---
DATE OF SERVICE: 07/20/2017 ADDENDUM Please the note from Dr. Uribe, which I concur. The patient has done well after the Warner catheter removed. Mental status seems probably back to baseline. He is doing okay on p.o. antibiotics now an d it sounds like we can get him back to his [facility] on p.o. antibiotics for the UTI and continue all other home medicines otherwise.
--- NOTE | 2017-07-21 03:48 | DIS-2 ---
DATE OF ADMISSION: 07/16/2017 DATE OF DISCHARGE: 07/20/2017 RESIDENT: Jas Uribe M.D. ADMITTING ATTENDING: Kiarra Zhao M.D. DISCHARGE ATTENDING: Jamar Baumann M.D. CONSULTATIONS: Dr. Esteban Ann, Pulmonology/Critical Care. IMAGIN. Brain CT without contrast on day of admission, no acute intracranial abnormalities, extensive subcortical and deep white matter microangiopathic changes. 2. Chest x-ray on 07/16/2017, central venous catheter tip projecting the expected location in the superior SVC, no pneumothorax, mild rightward buckling of the trachea may be sequalae of mediastinal mass versus transverse aortic ectasia. 3. Abdominal x-ray, no acute abnormality. PERTINENT LABORATORY FINDINGS: Bands at the time of admission 23, at the time of discharge 0. Creatinine at time of admission 1.85 trended down to 1.29. Urinalysis remarkable for protein 300, glucose 100, ketones 15, blood large, nitrite positive, bilirubin large, urobilinogen 4, leukocyte esterase moderate, rbc's 21-50 per high power field, white blood cell 21-50 per high power field, squamous epithelial cells 0-3, transitional epithelial cells 7-10, 1+ bacteria, 11-20 hyaline cast. Albumin at the time of admission 3.5 trended down to 2.9. Troponin at time of admission 0.027 trended up to 0.047, and down to 0.042. CK- MB at the time of admission 1.5 trended up to 5.3. Lactic acid at the time of admission 5.2 trended down to 3.1. Sodium at the time of admission 146 trended down to 145. MICROBIOLOGY: 1. Preliminary blood cultures positive for coagulase negative Staphylococcus identified as methicillin-resistant Staphylococcus epidermidis, likely secondary to contaminant. One of two cultures positive. 2. Urine culture negative at 36 hours; however, urine culture was collected after initial dose of antibiotics were given. ADMITTING DIAGNOSES: 1. Septic shock secondary to urinary tract infection. 2. Acute kidney injury, secondary to #1. 3. Advanced dementia behavioral disturbances. 4. Dysphagia. SECONDARY DIAGNOSES: 1. Hypertension. 2. Gastroesophageal reflux disease. 3. Hypernatremia. 4. Indeterminate troponins. 5. Abdominal pain. 6. Hematochezia. DISCHARGE MEDICATIONS: 1. Bactrim DS 1 tab twice daily for 2 additional days. 2. Tylenol 650 mg q.4 hours p.r.n. available both p.o. and p.r.n. 3. Docusate 100 mg twice daily. 4. Zofran 4 mg q.6 hours p.r.n. 5. Lipitor 20 mg daily. 6. Dulcolax 10 mg daily as needed. 7. Lisinopril 10 mg daily. 8. Protonix 40 mg daily. 9. Depakote 125 mg daily. 10. Amlodipine 10 mg daily. 11. Vitamin C 500 mg daily. 12. Rivastigmine 1.5 mg daily. 13. Aspirin 81 mg daily. 14. DuoNeb 3 mL 4 times daily as needed. 15. Risperdal 1 mg at bedtime. DISCONTINUED MEDICATIONS: None. HISTORY OF PRESENT ILLNESS AND HOSPITAL COURSE: Mr. Davis is a pleasant 87- year-old -[place] male with past medical history of hypertension, hyperlipidemia, multiple prior CVAs and advanced age dementia. He presented as a transfer from the [facility] with a chief complaint of altered mentation, diarrhea, nausea, and vomiting. There was initially found to be hypotensive with blood pressures in the 50s or 40s. He additionally found to be tachycardic and tachypneic. His hypotension was refractory to fluid resuscitation and therefore required Levophed drip. In the outside ER, he was started on vancomycin and Zosyn before being transferred to the [facility] ER in [place]. Upon arrival to the [facility] , he was still found to be hypotensive requiring up to 12 mcg per minute of Levophed. While in the [place] ER, he received a dose of Rocephin and gentamicin , although the reason behind this is still unclear. Since he was requiring pressor support, he was placed in the intensive care unit. On day #1 of admission, the patient's primary care physician and , who is also his power of regulatory attorney, were contacted. It was found that the patient had an out of hospital DNR signed. His stated that she did not want resuscitative measures including chest compressions or endotracheal intubation. However, at this time, she was unsure if she would desire hemodialysis or PEG tube placement if the patient required this. The patient's primary care physician informed the primary team that the patient is alert and oriented to person at baseline. He also will respond with simple 1-2 word phrases most of the time. For the first 2 days of the hospitalization, the patient remained fairly obtunded. However, on day #3 and #4, he became more alert and somewhat more agitated. Speech therapy was called to evaluate the patient to determine if he was safe to swallow. He failed his initial speech therapy evaluation. On day of discharge, conversation was had with the patient's spouse whether to proceed with PEG tube placement or initiate comfort feedings. After deliberation, the patient's decided to proceed with comfort feedings with known risk of aspiration. He was subsequently transitioned back to his oral medications and switched to p.o. Bactrim for the next 2 days to complete his antibiotic regimen. The patient's primary care physician was notified at the time of discharge. Vital signs at the time of discharge were normal with the exception of some mild hypertension. It is worth noting that the patient had been off of his antihypertensive regimen for at least 4 days. DISPOSITION: He was discharged in stable condition; however, his long-term prognosis is guarded given his advanced dementia and risk for aspiration. DISCHARGE INSTRUCTIONS: 1. Location: [facility]. 2. Activity: As tolerated. Encourage physical therapy. 3. Diet: Regular diet/comfort feeds. The patient's was made aware of the aspiration risk. 4. Followup: The patient will follow up with Dr. Ott in the custodial. It was recommended that a repeat base metabolic panel will be performed within 1 week of discharge. Less than 30 minutes spent on discharge. MTDD
[2017-07-21] MEDS ORDERED: Lisinopril 10 MG TAB PO SCH (09:00)
== END 2017-07-20 15:06 | DRG 871 ==
LOC: ERS 20:18 → CCU 22:00 → T4-A 07-17 13:40
PROVIDERS: ADMIT Family Medicine; ATTEND Family Medicine
DX: A41.9 Sepsis, unspecified organism (principal); R65.21 Severe sepsis with septic shock; N17.9 Acute kidney failure, unspecified; F03.91 Unspecified dementia, unspecified severity, with behavioral disturbance; E87.0 Hyperosmolality and hypernatremia; N39.0 Urinary tract infection, site not specified; K92.1 Melena; E87.2 Acidosis; R13.10 Dysphagia, unspecified; K21.9 Gastro-esophageal reflux disease without esophagitis; Z66 Do not resuscitate; I12.9 Hypertensive chronic kidney disease with stage 1 through stage 4 chronic kidney disease, or unspecified chronic kidney disease; E78.5 Hyperlipidemia, unspecified; R74.8 Abnormal levels of other serum enzymes; N18.3 Chronic kidney disease, stage 3 (moderate); Z85.46 Personal history of malignant neoplasm of prostate
CPT/HCPCS: 36415; 51702; 70450; 74018; 80048; 80053; 80202; 81003; 81015; 82274; 82553; 83605; 83630; 84484; 85025; 87045; 87046; 87086; 87324; 87449; 87899; 93005; 94760; 96365; 96366; 96375; C9113; G8996-GN-CN; G8997-GN-CM; J0696; J1580; J1650; J2543; J3370; J7050

== ENCOUNTER 2017-08-02 13:56 | Observation (INO) | payer MEDICARE, MEDICAID ==
--- NOTE | 2017-08-02 15:15 | RAD ---
PORTABLE SEMIUPRIGHT CHEST 1 VIEW: Date: 08/02/17 HISTORY: 86-year-old male with history of altered mental status. FINDINGS: There is poor inspiration. No confluent pneumonia, overt edema, or pleural effusion. IMPRESSION: No significant acute intrathoracic disease. Poor inspiration. Atherosclerosis of aorta. POS: [facility]
[2017-08-02 15:17] LABS: Hemoglobin 8.7 g/dL (14.0-18.0); Mean Corpuscular HGB CONC 32.5 g/dL (32.0-36.0); Mean Corpuscular Hemoglobin 32.7 pg (27.0-31.0); Mean Platelet Volume 7.2 fL (7.4-10.4); Platelet Count 277 thou/uL (130-400); RBC Distribution Width 15.1 % (11.5-14.5); Red Blood Cell (RBC) Count 2.64 mill/uL (4.70-6.10); White Blood Cell (WBC) Count 9.2 thou/uL (4.8-10.8)
[2017-08-02 15:36] LABS: ALT (SGPT) 20 U/L (8-55); AST (SGOT) 24 U/L (5-34); Albumin 3.6 g/dL (3.4-4.8); Alkaline Phosphatase 83 U/L (40-150); Anion Gap 13 mmol/L (10-20); BUN (Urea Nitrogen) 8 mg/dL (8.4-25.7); Bilirubin, Total 1.1 mg/dL (0.2-1.2); Calc. Creatinine Clearance 0 mL/min (70-130); Calcium 10.9 mg/dL (7.8-10.44); Carbon Dioxide 26 mmol/L (23-31); Chloride 107 mmol/L (98-107); Estimated GFR-MDRD 55; Globulin 2.3 g/dL (2.4-3.5); Glucose 94 mg/dL (83-110); Potassium 3.4 mmol/L (3.5-5.1); Protein, Total 5.9 g/dL (5.8-8.1); Sodium 143 mmol/L (136-145)
[2017-08-02 15:38] LABS: Anisocytosis SLIGHT = 6-15 cells (100X) (0-5/hpf); Band 2 % (5-11); Eosinophils 2 % (0-10); Lymphocytes 2 % (21-51); MDiff Complete? YES; Monocytes 1 % (0-10); Neutrophil 93 % (42-75); PLT Morphology Comment Appears Adequate
[2017-08-02 15:40] LABS: CKMB 1.3 ng/mL (0-6.6); Troponin I Less than 0.010 ng/mL (< 0.028)
[2017-08-02 16:36] LABS: Bilirubin Negative (Negative); Blood, Urine Negative (Negative); Clarity CLEAR (Clear); Glucose, Urine (Dipstick) Negative (Negative); Leukocyte Negative (Negative); Nitrite Negative (Negative); Protein, Urine (Dipstick) 30 mg/dL (Neg-Trace); Specific Gravity, Urine 1.014 (1.002-1.036); pH, Urine 6.5 (5.0-9.0)
[2017-08-02 16:40] LABS: Bacteria/HPF None Seen HPF (None Seen); WBC/HPF 0-3 HPF (0-3)
[2017-08-02 16:42] LABS: Pathc Cast-AUWi Flag 6.97 (0-2.49)
[2017-08-02 16:52] LABS: Renal Epithelial 0-3 HPF (0-3); Transitional Epithelial 0-3 HPF (0-3)
[2017-08-02] MEDS ORDERED: cefTRIAXone\\ROCEPHIN 2 GM VIAL ONE (17:29)
--- NOTE | 2017-08-02 18:13 | PDOC.FPRHP ---
- History of Present Illness Chief Complaint: AMS History of Present Illness: 87 yo man with pmhx of severe alzheimers dementia presents from the [place] for unresponsiveness and altered mentation. The patient's (ROGER) stated that over the past two days he has been less responsive. He usually knows his name and knows where he is per the and he also can converse somewhat. Today he only knew his name. The denied sob, cp, n/v/d, fevers or chills. He had an admission mid july for this same thing. The is interested in learning more about hospice. She would like to use the company called [employer]. ED Course: 2g ceftriaxone - Allergies/Adverse Reactions Allergies Allergy/AdvReac Type Severity Reaction Status Date / Time No Known Drug Allergies Allergy Verified 08/02/17 19:46 - Home Medications Medication Instructions Recorded Confirmed Type Acetaminophen [Tylenol] 650 mg PO Q6HR PRN 08/02/17 08/02/17 History Amlodipine [Norvasc] 10 mg PO DAILY 08/02/17 08/02/17 History Ascorbic Acid [Vitamin C Chewable 500 mg PO DAILY 08/02/17 08/02/17 History Tablet] Aspirin 325 mg PO DAILY 08/02/17 08/02/17 History Atorvastatin Calcium [Lipitor] 20 mg PO DAILY 08/02/17 08/02/17 History Divalproex Sodium [Depakote 125 mg PO DAILY 08/02/17 08/02/17 History Sprinkle] Docusate [Colace] 100 mg PO DAILY 08/02/17 08/02/17 History Ipratropium/Albuterol Sulfate 3 ml NEB Q6HR PRN 08/02/17 08/02/17 History [Duoneb] Lisinopril 10 mg PO DAILY 08/02/17 08/02/17 History Pantoprazole Sodium [Protonix] 40 mg PO DAILY 08/02/17 08/02/17 History Rivastigmine Tartrate 1.5 mg PO 0800 08/02/17 08/02/17 History [Rivastigmine] risperiDONE [RisperDAL] 1 mg PO HS 08/02/17 08/02/17 History - History PMHx:Alzheimer's dementia, dysphagia, HTN, prostate cancer PSHx: hernia repair, prostatectomy FHx: noncontributory Social:denies smoking, alcohol, drug use - Review of Systems General: denies: fever/chills, weight/appetite/sleep changes Eyes: denies: eye pain, vision changes ENT: denies: nasal congestion, rhinorrhea Respiratory: denies: cough, congestion, shortness of breath Cardiovascular: denies: chest pain, palpitation, edema Gastrointestinal: denies: nausea, vomiting, diarrhea Genitourinary: denies: incontinence, dysuria Skin: denies: rashes, lesions, jaundice Musculoskeletal: denies: pain, tenderness, stiffness Neurological: denies: numbness, syncope, seizure Psychological: denies: anxiety, depression - Vital signs BP: 90/61 HR: 57 RR: 10 Tmax: 98 Pox: 100% on RA Wt: 90kg - Physical Exam Constitutional: NAD, awake, alert and oriented, other (GCS 12) HEENT: normocephalic and atraumatic Neck: trachea midline, no LAD, no thyromegaly Chest: no-tender to palpation, no lesions Heart: RRR, normal S1/S2, no murmurs/rubs/gallops Lungs: CTAB, no respiratory distress Abdomen: soft, non-tender, other (hypoactive bowel sounds) Skin: no rash/lesions, good turgor Heme/Lymphatic: no unusual bruising or bleeding, no purpura FMR H&P: Results - Labs Result Diagrams: 08/02/17 15:10 08/02/17 15:10 Lab results: WBC 9.2 thou/uL (4.8-10.8) 08/02/17 15:10 Hgb 8.7 g/dL (14.0-18.0) L 08/02/17 15:10 Hct 26.6 % (42.0-52.0) L 08/02/17 15:10 MCV 101.0 fl (80.0-94.0) H 08/02/17 15:10 Plt Count 277 thou/uL (130-400) 08/02/17 15:10 Band Neuts % (Manual) 2 % (5-11) L 08/02/17 15:10 Sodium 143 mmol/L (136-145) 08/02/17 15:10 Potassium 3.4 mmol/L (3.5-5.1) L 08/02/17 15:10 Chloride 107 mmol/L (98-107) 08/02/17 15:10 Carbon Dioxide 26 mmol/L (23-31) 08/02/17 15:10 BUN 8 mg/dL (8.4-25.7) L 08/02/17 15:10 Creatinine 1.25 mg/dL (0.6-1.3) 08/02/17 15:10 Glucose 94 mg/dL (83-110) 08/02/17 15:10 Calcium 10.9 mg/dL (7.8-10.44) H 08/02/17 15:10 Total Bilirubin 1.1 mg/dL (0.2-1.2) 08/02/17 15:10 AST 24 U/L (5-34) 08/02/17 15:10 ALT 20 U/L (8-55) 08/02/17 15:10 Alkaline Phosphatase 83 U/L (40-150) 08/02/17 15:10 CK-MB (CK-2) 1.3 ng/mL (0-6.6) 08/02/17 15:10 Serum Total Protein 5.9 g/dL (5.8-8.1) 08/02/17 15:10 Albumin 3.6 g/dL (3.4-4.8) 08/02/17 15:10 Urine Ketones Negative mg/dL (Negative) 08/02/17 16:18 Urine Blood Negative (Negative) 08/02/17 16:18 Urine Nitrite Negative (Negative) 08/02/17 16:18 Ur Leukocyte Esterase Negative (Negative) 08/02/17 16:18 Urine RBC 4-6 HPF (0-3) 08/02/17 16:18 Urine WBC 0-3 HPF (0-3) 08/02/17 16:18 Ur Squamous Epith Cells 4-6 HPF (0-3) H 08/02/17 16:18 Urine Bacteria None Seen HPF (None Seen) 08/02/17 16:18 - Radiology Interpretation Chest x-ray Status: report reviewed by me Additional comment: no acute process FMR H&P: A/P - Problem List (1) Encephalopathy Current Visit: Yes Status: Acute Code(s): G93.40 - ENCEPHALOPATHY, UNSPECIFIED (2) Alzheimer's dementia Current Visit: Yes Status: Acute Code(s): G30.9 - ALZHEIMER'S DISEASE, UNSPECIFIED; F02.80 - DEMENTIA IN OTH DISEASES CLASSD ELSWHR W/O BEHAVRL DISTURB (3) HTN (hypertension) Current Visit: Yes Status: Acute Code(s): I10 - ESSENTIAL (PRIMARY) HYPERTENSION (4) Acute respiratory failure with hypoxia Current Visit: Yes Status: Acute Code(s): J96.01 - ACUTE RESPIRATORY FAILURE WITH HYPOXIA (5) Acute hypotension Current Visit: Yes Status: Acute Code(s): I95.9 - HYPOTENSION, UNSPECIFIED - Plan 87 yo man with pmhx of severe alzheimers dementia presents with altered mentation from the DE admitted for acute encephalopathy. Encephalopathy-Unclear etiology, although appears to be a slow chronic decline d /t pt's alzheimer's dementia. He has spells of apnea and was breathing at a rate of 8-10 while we were evaluating him in the room. No infectious etiology was found or metabolic etiology. He was admitted for unresponsiveness/altered mentation a few weeks ago as well. [facility] requests the pt to be DNR. Palliative/ hospice care consult placed. Acute Hypoxia, now resolved -oxygen prn Acute Hypotension, now resolved -Given NS in the ER and started on maintenance fluids of NS @ 140ml/hr -Last admission patient required levophed. Macrocytic anemia -acute drop in H/H since last admission, will order an FOBT, vitamin b12/folate , and iron studies HTN -Will restart Alzheimers Dementia -A&ox1, normally at baseline per he is a&ox2 and conversant at times. He was evaluated by speech at his last visit who spoke with family about his aspiration risks. who is MPOA does not desire to place a PEG tube. DVT prophylaxis- scds as pt had an acute drop in H/H FMR H&P: Upper Level - Pertinent history PCP: Namrata Patient is an 87yo AAM with PMHx of advanced dementia, dysphagia on mechanical soft diet, prior lacunar infarcts and HTN who presents from [place] due to hypoxia and unresponsiveness. Patient was eating lunch when he suddenly became unresponsive and hypoxic and was placed on a nonrebreather mask. Per , he had been more somnolent over the past 2 days. Denies any fever, congestion, N/V , bloody diarrhea, hematemesis. States he is normally A&O x2 (person and place) but has declined from baseline and only knows name. ED: Rocephin 2g, 1l bolus NS (EMS) - Pertinent findings T 98 BP 90/61 HR 62 RR 20 O2 90% on RA Wt. 90kg General: NAD, responds to sternal rub Heart: S1 S2, RRR Lungs: CTAB Abd: soft, NT/ND/BS+ Ext: no cyanosis or edema Neuro: GCS 12 WBC 9.2, neutrophils 93% H/H: 8.7/26.6 MCV 101 K+ 3.4 Trop <0.01, CKMB 1.3 UA: negative CXR: negative - Plan Date/Time: 08/02/171811 1. Encephalopathy: patient dec from baseline and only A&O x1 (person) and normally A&O x2 (person and place). No signs of infection. Patient has underlying advanced dementia. He also started having dec RR and apneic spells. Suspect patient is very close to passing away which is why he is declining. Dr. Brooks spoke with who is POA and confirmed patients DNR status. Will consult Palliative/Hospice. 2. Acute Hypoxia: Patient was found to be hypoxic at DE and placed on nonrebreather. Upon ED arrival, hypoxia had resolved and currently saturating 100% on RA. Cont to monitor. 3. Hypotension: Patient found to be hypotensive at the DE with lowest BP in the ED of 87/56. EMS gave him 1L bolus of NS with improvement in BP. Monitor. 4. Neutrophilia: patient with normal WBC at 8.7 but 93% neutrophils. CXR and UA negative. No obvious source of infection at this time. Given Rocephin 2g in the ED. Hold off on abx at this time. Blood cultures pending. 5. Macrocytic anemia: H/H of 8.7/26.6 but on 07/19 pt had Hg of 11.3. denies any hematochezia, black tarry stool or hematemesis. Check FOBT and Fe studies. Monitor closely. 6. Hypokalemia: replenish and monitor. 7. HTN: hold home meds 8. Dysphagia: on mechanical soft diet. Cont. 9. HLD: cont home med 10. GERD: cont home med 11. Diet: mechanical soft 12. PPx: SCDs 13. Code Status: DNR I, Francisca Hector, have evaluated this patient and agree with findings/ plan as outlined by video intern resident. Pertinent changes/additions are listed here.
[2017-08-02] MEDS ORDERED: Acetaminophen 650 MG/20.3 ML UDCUP PO PRN (18:18)
[2017-08-02 19:11] LABS: Transferrin, Serum 142 mg/dL (163-344)
[2017-08-02 19:12] LABS: Iron 51 ug/dL (65-175)
[2017-08-02] MEDS: Sodium Chloride 0.9% 1,000 ML IV SCH (20:00)
[2017-08-02 20:43] LABS: Folate (Folic Acid) 11.3 ng/mL (7.0-31.4)
[2017-08-02 23:43] VITALS: BMI 27.9
[2017-08-03] MEDS: Sodium Chloride 0.9% 1,000 ML IV SCH (03:55)
[2017-08-03 05:37] LABS: Anion Gap 14 mmol/L (10-20); BUN (Urea Nitrogen) 7 mg/dL (8.4-25.7); Calc. Creatinine Clearance 76 mL/min (70-130); Calcium 10.5 mg/dL (7.8-10.44); Carbon Dioxide 21 mmol/L (23-31); Chloride 112 mmol/L (98-107); Estimated GFR-MDRD 81; Glucose 72 mg/dL (83-110); Potassium 3.6 mmol/L (3.5-5.1); Sodium 143 mmol/L (136-145)
[2017-08-03 06:01] LABS: Band 1 % (5-11); Hemoglobin 9.8 g/dL (14.0-18.0); Hypochromia SLIGHT = 6-15 cells (100X) (0-5/hpf); Lymphocytes 30 % (21-51); MDiff Complete? YES; Macrocytosis MODERATE=16-30 cells (100X) (0-5/hpf); Mean Corpuscular HGB CONC 31.9 g/dL (32.0-36.0); Mean Corpuscular Hemoglobin 32.7 pg (27.0-31.0); Mean Platelet Volume 8.2 fL (7.4-10.4); Metamyelocyte 4 % (0-0); Monocytes 5 % (0-10); Neutrophil 60 % (42-75); PLT Morphology Comment Appears Adequate; Platelet Count 263 thou/uL (130-400); RBC Distribution Width 15.5 % (11.5-14.5); Red Blood Cell (RBC) Count 3.01 mill/uL (4.70-6.10); Tear Drops SLIGHT = 2-5 cells (100X) (0-1/hpf); White Blood Cell (WBC) Count 7.8 thou/uL (4.8-10.8)
--- NOTE | 2017-08-03 07:31 | PDOC.FM ---
- Subjective Subjective: This morning patient is alert but oriented x0. He denies any pain but does not answer questions appropriately. No distress per nursing staff. - Objective Vital Signs & Weight: Vital Signs (12 hours) Temp Pulse Resp BP BP Pulse Ox 08/03/17 03:48 97.9 F 60 16 156/82 H 95 08/02/17 23:41 98.1 F 56 L 16 133/84 94 L 08/02/17 19:50 97.8 F 58 L 16 138/83 96 08/02/17 19:39 97.8 F 58 L 16 Weight Weight 88.314 kg I&O: 08/02/17 08/03/17 08/04/17 06:59 06:59 06:59 Intake Total 1540 Output Total 200 Balance 1340 Result Diagrams: 08/03/17 04:08 08/03/17 04:08 Phys Exam - Physical Examination Constitutional: NAD HEENT: PERRLA, moist MMs Respiratory: no wheezing, clear to auscultation bilateral Cardiovascular: RRR, no significant murmur Gastrointestinal: soft, non-tender Musculoskeletal: no edema, pulses present Neurological: non-focal, moves all 4 limbs Skin: no rash, cap refill <2 seconds Dx/Plan (1) Acute hypotension Code(s): I95.9 - HYPOTENSION, UNSPECIFIED Status: Acute (2) Acute respiratory failure with hypoxia Code(s): J96.01 - ACUTE RESPIRATORY FAILURE WITH HYPOXIA Status: Acute (3) Alzheimer's dementia Code(s): G30.9 - ALZHEIMER'S DISEASE, UNSPECIFIED; F02.80 - DEMENTIA IN OTH DISEASES CLASSD ELSWHR W/O BEHAVRL DISTURB Status: Acute (4) Encephalopathy Code(s): G93.40 - ENCEPHALOPATHY, UNSPECIFIED Status: Acute (5) HTN (hypertension) Code(s): I10 - ESSENTIAL (PRIMARY) HYPERTENSION Status: Acute - Plan Plan: # Chronic Encephalopathy 2/2 alzheimer's disease - chronic alzheimer's dementia - metabolites WNL, no sign of infection - is MPOA, requests DNR and more information about hospice care - palliative/hospice consult placed - evaluated by ST a few weeks ago, spoke to family about aspiration risks, family elects for no PEG, will start nectar thickened soft diet # Acute Hypoxia - low RR on presentation to ED, now resolved # Acute Hypotension - fluids overnight - resolved # Macrocytic Anemia - B12 WNL, folate on low side - supplement folate # DVT prophylaxis - SCDs, hold off pharmacologic 2/2 fall risk/anemia Dispo: D/C to intermediate/hospice pending palliative consult and family discussion
[2017-08-03] MEDS ORDERED: Enoxaparin Sodium 30 MG/0.3 ML SYRINGE SC SCH (09:00)
[2017-08-03] MEDS: Folic Acid 1 MG TAB PO SCH (10:50)
--- NOTE | 2017-08-04 06:46 | PDOC.FM ---
- Subjective Subjective: Patient is comfortably lying in bed. Upon awakening, he is confused. Nurse reports he slept well all night. He has no complaints. - Objective MAR Reviewed: Yes Vital Signs & Weight: Vital Signs (12 hours) Temp Pulse Resp BP BP Pulse Ox 08/04/17 04:00 97.8 F 84 18 142/84 H 95 08/04/17 01:01 97.7 F 75 18 155/77 H 97 08/03/17 19:41 98.2 F 99 18 109/68 96 Weight Weight 88.314 kg I&O: 08/02/17 08/03/17 08/04/17 06:59 06:59 06:59 Intake Total 1540 120 Output Total 200 Balance 1340 120 Result Diagrams: 08/03/17 04:08 08/03/17 04:08 <Mary Puri - Last Filed: 08/04/17 11:10> - Objective Vital Signs & Weight: Vital Signs (12 hours) Temp Pulse Resp BP Pulse Ox 08/04/17 08:18 99.0 F 84 16 149/66 H 95 08/04/17 08:00 97.8 F 84 18 97 Weight Weight 88.314 kg I&O: 08/03/17 08/04/17 08/05/17 06:59 06:59 06:59 Intake Total 1540 120 360 Output Total 200 Balance 1340 120 360 Result Diagrams: 08/03/17 04:08 08/03/17 04:08 <Shara Stein - Last Filed: 08/04/17 19:24> Phys Exam - Physical Examination Constitutional: NAD Respiratory: no wheezing, no rales, clear to auscultation bilateral Cardiovascular: RRR systolic murmur Gastrointestinal: soft Neurological: moves all 4 limbs Deviation from normal: confused, AOx1 <Mary Puri - Last Filed: 08/04/17 11:10> Dx/Plan (1) Alzheimer's dementia Code(s): G30.9 - ALZHEIMER'S DISEASE, UNSPECIFIED; F02.80 - DEMENTIA IN OTH DISEASES CLASSD ELSWHR W/O BEHAVRL DISTURB Status: Acute (2) Encephalopathy Code(s): G93.40 - ENCEPHALOPATHY, UNSPECIFIED Status: Acute (3) HTN (hypertension) Code(s): I10 - ESSENTIAL (PRIMARY) HYPERTENSION Status: Acute - Plan Plan: # Chronic Encephalopathy 2/2 alzheimer's disease - chronic alzheimer's dementia - metabolites WNL, no sign of infection - is MPOA, DNR code status and hospice consult placed per her request - evaluated by ST a few weeks ago, spoke to family about aspiration risks, family elects for no PEG, will start nectar thickened soft diet # Acute Hypoxia - low RR on presentation to ED, now resolved # Acute Hypotension - resolved # Macrocytic Anemia - B12 WNL, folate on low side - supplement folate # DVT prophylaxis - SCDs, hold off pharmacologic 2/2 fall risk/anemia Dispo: D/C to halfway/hospice pending hospice evaluation <Mary Puri - Last Filed: 08/04/17 11:10> Attending Addendum - Attending Addendum Date/Time: 08/04/171923 I personally evaluated the patient and discussed the management with Dr. Butler. I agree with the History, Examination, Assessment and Plan documented above with any addition or exceptions noted below. Hospice will be speaking with family today and he will likely discharge back to [facility] on hospice. <Shara Stein - Last Filed: 08/04/17 19:24>
[2017-08-04] MEDS: Folic Acid 1 MG TAB PO SCH (07:30)
[2017-08-04 08:31] VITALS: BP 149/66; TEMP 99
--- NOTE | 2017-08-05 01:36 | DIS-2 ---
DATE OF ADMISSION: 08/02/2017 DATE OF DISCHARGE: 08/04/2017 RESIDENT: Mary Puri DO ADMITTING ATTENDING: Pradeep Brown MD DISCHARGE ATTENDING: Shara Stein MD PROCEDURES/IMAGING: Chest x-ray shows no significant acute intrathoracic disease and atherosclerosis of the aorta. PRIMARY DIAGNOSES: 1. Altered mental status. 2. Worsening Alzheimer dementia. 3. Acute hypoxic respiratory failure. 4. Anemia of chronic disease. 5. Acute hypertension. SECONDARY DIAGNOSES: 1. Hypertension. 2. Prostate cancer, status post prostatectomy. 3. Dysphagia. DISCHARGE MEDICATIONS: 1. DuoNeb 3 mL nebs q.6 hours p.r.n. 2. Protonix 40 mg p.o. daily. 3. Risperdal 1 mg p.o. at bedtime. 4. Rivastigmine 1.5 mg p.o. daily. 5. Colace 100 mg p.o. daily. 6. Aspirin 325 mg p.o. daily. 7. Vitamin C chewable tablet 500 mg p.o. daily. 8. Depakote Sprinkle 125 mg p.o. daily. 9. Lipitor 20 mg p.o. daily. 10. Norvasc 10 mg p.o. daily. 11. Tylenol 650 mg p.o. q.6 hours p.r.n. for pain. 12. Amlodipine 10 mg p.o. daily p.r.n. systolic blood pressure greater than 160. DISCONTINUED MEDICATIONS: Lisinopril 10 mg daily. HISTORY OF PRESENT ILLNESS AND HOSPITAL COURSE: The patient is an 87-year-old -[place] male with past medical history of severe Alzheimer dementia, who [facility] the [facility] for episodes of unresponsiveness and altered mentation. Nursing staff states that the patient would have desaturation episodes as well as hypotensive episodes, which resolved spontaneously. EMS reports hypoxia en route, but during his stay, did not have any hypoxia or hypotensive episodes. The patient has longstanding history of Alzheimer dementia that has been subacutely progressive over the last couple of months. The patient has been A and O x2 and has declined to A and O x1. During the hospital stay, it was discussed with family end-of-life care and care goals. The patient's , Trinh, would like to pursue hospice and palliative care route. Initial lab workup revealed no real abnormalities other than hemoglobin of 8.7 with iron studies consistent with anemia of chronic disease. Chemistry panel reveals only slightly abnormal chloride at 112 and carbon dioxide at 21. Urine studies were performed and showed only proteinuria and hyaline casts, no bacteria, leukocyte esterase, or nitrites. Due to the patient's hypotensive episodes and initial blood pressure of 106/69, blood pressure medications were held throughout the stay and the patient's blood pressure has remained within adequate range for his age. Most recent blood pressure being 149/66. Other vital signs have been stable throughout the entire stay. Palliative care discussed with , Trinh, and made arrangements for hospice care to see the patient. Hospice has evaluated the patient and accepted the patient. [facility] will be taking care of the patient at [facility] going forward. It is believed the patient is at end of life and hypoxia and hypotensive episodes are resultant of progressing to end of life stage. DISPOSITION: Guarded. DISCHARGE INSTRUCTIONS: 1. Location: [facility] facility with hospice care with [facility]. 2. Diet: Mechanical soft. 3. Activity: As tolerated, due to agitation sitter recommended at bedside. 4. Followup: Follow up with Dr. Jones Ott in 1-2 days at [facility] facility. DAVY
--- NOTE | 2017-08-08 14:53 | EKG ---
Test Reason : AMS Blood Pressure : / mmHG Vent. Rate : 057 BPM Atrial Rate : 057 BPM P-R Int : 188 ms QRS Dur : 106 ms QT Int : 454 ms P-R-T Axes : 043 -37 003 degrees QTc Int : 441 ms Sinus bradycardia Left axis deviation Nonspecific T wave abnormality Abnormal ECG Confirmed by KAITY GOTTI, TYE ([id number]), telegraph editor YOSHI LEON ([id number]) on 08/08/2017 2:52:26 PM Referred By: Confirmed By:TYE BRICENO MD
== END 2017-08-04 16:41 ==
LOC: ERS 13:56 → MERGE 16:52 → T4-A 16:52 → INTOOBSV 16:52
PROVIDERS: ADMIT Family Medicine; ATTEND Family Medicine
DX: G93.40 Encephalopathy, unspecified (principal); G30.9 Alzheimer's disease, unspecified; F02.80 Dementia in other diseases classified elsewhere, unspecified severity, without behavioral disturbance, psychotic disturbance, mood disturbance, and anxiety; I10 Essential (primary) hypertension; I95.9 Hypotension, unspecified; J96.01 Acute respiratory failure with hypoxia; D53.9 Nutritional anemia, unspecified; Z79.82 Long term (current) use of aspirin; Z79.899 Other long term (current) drug therapy
CPT/HCPCS: 51701; 71045; 80048; 80053; 82553; 82607; 82728; 82746; 83540; 84466; 84484; 85025 ×2; 87040; 87086; 93005; 96361 ×2; 96365; 99285; G0378; 36415; 81003; 81015; J0696